=== PATIENT | male | born 1945 | race American Indian/Alaskan Native ===

== ENCOUNTER 2021-01-18 08:02 | Day surgery (SDC) | payer MEDICARE, BC ==
[2021-01-13 15:37] LABS: BASOPHILS # (AUTO) 0.1 X10'3 (0-0.2); BASOPHILS % (AUTO) 0.9 % (0-1); EOSINOPHILS # (AUTO) 0.4 X10'3 (0-0.9); EOSINOPHILS % (AUTO) 5.3 % (0-6); LYMPHOCYTES # (AUTO) 1.4 X10'3 (1.1-4.8); LYMPHOCYTES % (AUTO) 20.3 % (21-51); MEAN CORPUSCULAR HEMOGLOBIN 32.5 PG (27.0-31.0); MEAN CORPUSCULAR VOLUME 98.6 FL (78-98); MONOCYTES # (AUTO) 0.9 X10'3 (0-0.9); MONOCYTES % (AUTO) 13.2 % (2-12); NEUTROPHILS % (AUTO) 60.3 % (42-75); PRE OP PLATELET COUNT 371 X10'3 (140-440); RED BLOOD COUNT 3.15 X10'6 (4.70-6.10); RED CELL DISTRIBUTION WIDTH 13.1 % (11.5-14.5)
[2021-01-13 15:38] LABS: PRE OP HEMOGLOBIN 10.2 g/dL (14.0-17.9)
[2021-01-13 15:48] LABS: ALBUMIN 3.3 G/DL (3.4-5.0); ALBUMIN/GLOBULIN RATIO 0.9 (1.1-1.5); ALKALINE PHOSPHATASE 65 IU/L (46-116); BLOOD UREA NITROGEN 38 MG/DL (7-18); CALCIUM 9.4 MG/DL (8.5-10.1); CHLORIDE 103 MMOL/L (99-107); CREATININE 7.64 MG/DL (0.60-1.10); PRE OP ALT 26 U/L (30-65); PRE OP ANION GAP 8 (8-16); PRE OP AST 16 U/L (10-37); PRE OP BILIRUB, TOTAL 0.4 MG/DL (0.0-1.0); PRE OP GLUCOSE 126 MG/DL (70-104); PRE OP POTASSIUM 4.4 MMOL/L (3.4-5.1); PRE OP SODIUM 142 MMOL/L (135-145); TOTAL CARBON DIOXIDE 30.8 MMOL/L (24-32); TOTAL PROTEIN 6.8 G/DL (6.4-8.2); eGFR 7 ML/MIN
[~2021-01-18] VITALS: Ht 168.9 cm; Wt 66.2 kg
[2021-01-18] VITALS (11 sets, daily range): BP systolic 118–168; BP diastolic 58–83
[~2021-01-18 08:02] MED LIST: ALBU8.5H8 INH; CALC600T35 PO; CHOL400T57 PO; CITA40TA17; DILT240C90 PO; DOCU100C40 PO; FLUT1DIS20 INH; MONT10TA21 PO; SPIIN INH; VITE1000C PO; [UNRECOGNIZED DRUG - OTHER] PO; cefazolin/dext.iso 2gm/100ml IV ONE; famotidine 20mg tablet PO ONE; ringers solution, lacted 1,000 ML IV SCH
[2021-01-18] MEDS ORDERED: BUPIVAcaine/PF 2.5 mg/ml (0.25%) 30ml vial ONE (08:37)
[2021-01-18] MEDS ORDERED: normal saline 500ml IV soln 500 ML IV ONE (09:30)
[2021-01-18 10:10] LABS: CLARITY,URINE SLIGHTLY CLOUDY (Clear); COLOR,URINE YELLOW (Yellow); GLUCOSE, URINE NEGATIVE (Neg); KETONES,URINE NEGATIVE (Neg); LEUKOCYTE ESTERASE ,URINE NEGATIVE (Neg); NITRITES, URINE NEGATIVE (Neg); OCCULT BLOOD,URINE NEGATIVE (Neg); PH,URINE 8.5 (4.8-8.0); PROTEIN,URINE 100 mg/dl (Neg); UROBILINOGEN,URINE 0.2 E.U/dL (0.2-1.0)
[2021-01-18 10:11] LABS: UA COLLECTION TYPE CLN CATCH MIDSTREAM
[2021-01-18 10:26] LABS: BACTERIA,URINE FEW /HPF (Neg); RBC,URINE 0-2 /HPF (0-2)
[2021-01-18 10:27] LABS: SQUAMOUS EPITHELIAL CELL,UR NONE SEEN /LPF (FEW)
[2021-01-18] MEDS ORDERED: fentaNYL/PF 50MCG/1 ML 2ML syringe ONE (12:28)
[2021-01-18] MEDS ORDERED: midazolam 1 mg/ML 2ml injection ONE (12:29)
[2021-01-18] MEDS ORDERED: etomidate 2mg/ml inj. ONE (12:38)
[2021-01-18] MEDS ORDERED: rocuronium 10mg/ml inj IV ONE (12:38)
[2021-01-18] MEDS ORDERED: ondansetron/PF 4mg/2ml inj ONE (12:38)
[2021-01-18] MEDS ORDERED: glycopyrrolate 0.2mg/ml inj ONE (12:41)
[2021-01-18] MEDS ORDERED: morphine 2 MG/ML inj. syringe IV PRN (13:00)
[2021-01-18] MEDS ORDERED: ondansetron/PF 4mg/2ml inj IV PRN (13:00)
[2021-01-18] MEDS ORDERED: ringers solution, lacted 1,000 ML IV SCH (13:00)
[2021-01-18] MEDS ORDERED: fentaNYL/PF 50MCG/1 ML 2ML syringe IV PRN (13:00)
[2021-01-18] MEDS ORDERED: morphine 4 MG/ML inj SYRINge IV PRN (13:00)
[2021-01-18] MEDS ORDERED: hydrALAZINE 20mg/ml inj. IV PRN (13:00)
[2021-01-18] MEDS ORDERED: labetalol 20mg/4ml (5mg/ml) syringe IV PRN (13:00)
[2021-01-18] MEDS ORDERED: hydrALAZINE 20mg/ml inj. IV ONE (13:40)
[2021-01-18] MEDS ORDERED: HYDROcodone/acetaminophen 10/325mg tab PO ONE (14:10)
[2021-01-18] MEDS: fentaNYL/PF 50MCG/1 ML 2ML syringe IV PRN ×2 (14:46→15:21)
--- NOTE | 2021-01-18 16:20 | NUR ---
A&OX4, DENIES PAIN, V/S WNL, SCD OFF , PIV 20G RUE D/C, DERMABONDED LAPS SITES CLOSED CDI TO ABDOMEN. PATIENT HAS VOIDED WITH ZERO RISIDUAL IN BLADDER SCAN. I HAVE REVIEWED D/C INSTRUCTIONS WITH PATIENT AND HE HAS VERBALIZED UNDERSTANDING. PATIENT D/C WITH ALL BELONGINGS AND FAMILY GAVE TRANSPORT.
--- NOTE | 2021-01-19 07:42 | NUR ---
Received phone call from pt's . Pt hasn't voided since he left the hospital. Even though he is on dialysis, she states he voids every four hours. I told her to go to the ER for richard catheter placement. I called Dr. Conteh, he agreed and said to have him come to his office saturday to have it removed. I then spoke with the again and gave her those instructions.
== END 2021-01-18 16:20 | disposition home or self-care (01) ==
LOC: PAS 08:02
PROVIDERS: ATTEND Surgery
DX: K40.90 Unilateral inguinal hernia, without obstruction or gangrene, not specified as recurrent (principal); D17.6 Benign lipomatous neoplasm of spermatic cord; J44.9 Chronic obstructive pulmonary disease, unspecified; M10.9 Gout, unspecified; F32.9 Major depressive disorder, single episode, unspecified; K21.9 Gastro-esophageal reflux disease without esophagitis; I12.0 Hypertensive chronic kidney disease with stage 5 chronic kidney disease or end stage renal disease; N18.6 End stage renal disease; Z20.822 Contact with and (suspected) exposure to COVID-19; Z99.2 Dependence on renal dialysis; Z87.442 Personal history of urinary calculi; Z84.1 Family history of disorders of kidney and ureter; Z82.49 Family history of ischemic heart disease and other diseases of the circulatory system
CPT/HCPCS: 36415; 49650; 80053; 81001; 82948; 85025; 87088; 93005; C1758; C1781; J0360; J2250; J2270; J2405; J3010; J3490; U0003; U0005; A4215; A4618; J7120

== ENCOUNTER 2021-01-19 08:47 | Emergency (ER) | payer MEDICARE, BC ==
[~2021-01-19] VITALS: Ht 170.2 cm; Wt 67.3 kg
[~2021-01-19 08:47] MED LIST changes: -cefazolin/dext.iso 2gm/100ml IV ONE; -famotidine 20mg tablet PO ONE; -ringers solution, lacted 1,000 ML IV SCH
[2021-01-19] MEDS ORDERED: LIDOcaine 2% 10ml TOPICAL JELLY (Urojet) MM ONE (09:15)
[2021-01-19 10:20] VITALS: BP 142/76
[2021-01-19 10:22] LABS: CLARITY,URINE SLIGHTLY CLOUDY (Clear); COLOR,URINE YELLOW (Yellow); GLUCOSE, URINE NEGATIVE (Neg); KETONES,URINE NEGATIVE (Neg); LEUKOCYTE ESTERASE ,URINE NEGATIVE (Neg); NITRITES, URINE NEGATIVE (Neg); OCCULT BLOOD,URINE MODERATE (Neg); PROTEIN,URINE 100 mg/dl (Neg); UROBILINOGEN,URINE 0.2 E.U/dL (0.2-1.0)
[2021-01-19 10:23] LABS: UA COLLECTION TYPE STRAIGHT CATH
[2021-01-19 10:30] LABS: RBC,URINE TNTC /HPF (0-2)
[2021-01-19 10:31] LABS: BACTERIA,URINE FEW /HPF (Neg); SQUAMOUS EPITHELIAL CELL,UR FEW /LPF (FEW)
== END 2021-01-19 10:22 | disposition home or self-care (01) ==
LOC: ER 08:48
DX: R33.9 Retention of urine, unspecified (principal); I10 Essential (primary) hypertension; J45.909 Unspecified asthma, uncomplicated; Z79.899 Other long term (current) drug therapy
CPT/HCPCS: 51702; 81001; 87088; 99284

== ENCOUNTER 2021-05-04 18:34 | Emergency (ER) | payer MEDICARE, BC ==
[~2021-05-04] VITALS: Ht 172.7 cm; Wt 70.0 kg
[~2021-05-04 18:34] MED LIST changes: +ALBU8.5H17 INH; -ALBU8.5H8 INH
[2021-05-04] MEDS ORDERED: dexamethasone sod phosphate 10mg/ml inj IV STA (18:47)
[2021-05-04] MEDS ORDERED: DEXA6TAB6 PO (19:31)
[2021-05-04] MEDS ORDERED: CASIRIVIMAB/IMDEVIMAB inject. 10 ML in normal saline 100ml IV soln 100 ML IV ONE (20:00)
[2021-05-05 00:55] VITALS: BP 127/63
== END 2021-05-04 21:19 | disposition home or self-care (01) ==
LOC: ER 18:34
DX: U07.1 COVID-19 (principal); R06.02 Shortness of breath; I12.0 Hypertensive chronic kidney disease with stage 5 chronic kidney disease or end stage renal disease; N18.6 End stage renal disease; J45.909 Unspecified asthma, uncomplicated; Z98.890 Other specified postprocedural states; Z79.899 Other long term (current) drug therapy; Z99.2 Dependence on renal dialysis
CPT/HCPCS: 71045; 96374; 99283; J1100; M0243; Q0244

== ENCOUNTER 2021-12-31 02:47 | Emergency (ER) | payer MEDICARE, BC ==
[~2021-12-31] VITALS: Ht 172.7 cm; Wt 72.7 kg
[~2021-12-31 02:47] MED LIST changes: +DEXA6TAB6 PO
[2021-12-31] MEDS ORDERED: phenytoin sod 50mg/ml 2ml vial IV STA (03:29)
[2021-12-31 03:54] LABS: BASOPHILS # (AUTO) 0.1 X10'3 (0-0.2); EOSINOPHILS # (AUTO) 0.2 X10'3 (0-0.9); EOSINOPHILS % (AUTO) 3.9 % (0-6); HEMATOCRIT 30.7 % (42.0-52.0); HEMOGLOBIN 10.3 g/dl (14.0-17.9); LYMPHOCYTES # (AUTO) 1.7 X10'3 (1.1-4.8); LYMPHOCYTES % (AUTO) 27.3 % (21-51); MEAN CORPUSCULAR HEMOGLOBIN 31.8 PG (27.0-31.0); MEAN CORPUSCULAR HGB CONC 33.5 g/dL (33.0-36.5); MEAN CORPUSCULAR VOLUME 94.9 FL (78-98); MEAN PLATELET VOLUME 7.1 FL (7.4-10.4); MONOCYTES # (AUTO) 0.9 X10'3 (0-0.9); MONOCYTES % (AUTO) 14.5 % (2-12); NEUTROPHILS # (AUTO) 3.3 X10'3 (1.8-7.7); NEUTROPHILS % (AUTO) 53.3 % (42-75); PLATELET COUNT 264 X10'3 (140-440); RED BLOOD COUNT 3.24 X10'6 (4.70-6.10); WHITE BLOOD COUNT 6.2 X10'3 (4.5-11.0)
[2021-12-31 04:12] LABS: ALANINE AMINOTRANSFERASE 18 U/L (12-78); ALBUMIN 3.2 G/DL (3.4-5.0); ALKALINE PHOSPHATASE 57 IU/L (46-116); ANION GAP 9 (8-16); ASPARTATE AMINO TRANSFERASE 15 U/L (10-37); BILIRUBIN,TOTAL 0.4 MG/DL (0.1-1.0); BLOOD UREA NITROGEN 50 MG/DL (7-18); BUN/CREATININE RATIO 4.6 (5.4-32.0); CALCIUM 9.2 MG/DL (8.5-10.1); CHLORIDE 103 MMOL/L (99-107); CREATININE 10.78 MG/DL (0.60-1.10); GLUCOSE 114 MG/DL (70-104); POTASSIUM 3.9 MMOL/L (3.5-5.1); SODIUM 141 MMOL/L (135-145); TOTAL CARBON DIOXIDE 29.5 MMOL/L (24-32); TOTAL PROTEIN 6.4 G/DL (6.4-8.2); eGFR 5 ML/MIN
[2021-12-31] MEDS ORDERED: oxcarbazepine 150mg tablet PO STA (05:20)
[2021-12-31] MEDS ORDERED: clonazePAM 1mg tablet PO ONE ×2 (05:45→07:50)
[2021-12-31] MEDS ORDERED: OXCA300T16 PO ×6 (06:24→08:51)
[2021-12-31 06:55] VITALS: BP 144/73
--- NOTE | 2021-12-31 08:55 | NUR ---
Pt and given and understands d/c instructions. IV d/c'd, catheter was intact. Escorted out of the department via wheelchair.
== END 2021-12-31 08:55 | disposition home or self-care (01) ==
LOC: ER 02:48
DX: G50.0 Trigeminal neuralgia (principal); I10 Essential (primary) hypertension; J45.909 Unspecified asthma, uncomplicated; Z98.890 Other specified postprocedural states; Z79.899 Other long term (current) drug therapy; R51.9 Headache, unspecified
CPT/HCPCS: 36415; 70450; 80053; 85025; 96374; 99285; J1165

== ENCOUNTER 2022-01-16 14:11 | Outpatient (CLI) | payer MEDICARE, BC ==
[~2022-01-16 14:11] MED LIST changes: +OXCA300T16 PO
== END 2022-01-16 23:59 | disposition home or self-care (01) ==
LOC: CARD DIAG 14:11
PROVIDERS: ATTEND Internal Medicine Cardiovascular Disease
DX: I05.8 Other rheumatic mitral valve diseases (principal)
CPT/HCPCS: 93306